=== PATIENT | male | born 1965 | race African-American/Black ===

== ENCOUNTER 2017-07-18 10:09 | Emergency (ER) | payer OTHER ==
[~2017-07-18] VITALS: Ht 180.3 cm; Wt 73.0 kg
[2017-07-18] MEDS ORDERED: IBUPROFEN 600MG TABLET PO ONE (11:15)
[2017-07-18 13:00] VITALS: BP 152/80
== END 2017-07-18 13:55 | disposition home or self-care (01) ==
LOC: ER 10:26
DX: S40.021A Contusion of right upper arm, initial encounter (principal); S20.219A Contusion of unspecified front wall of thorax, initial encounter; I10 Essential (primary) hypertension; V43.52XA Car driver injured in collision with other type car in traffic accident, initial encounter; Y93.89 Activity, other specified; Y92.488 Other paved roadways as the place of occurrence of the external cause
CPT/HCPCS: 71045; 99283